=== PATIENT | male | born 1995 | race Caucasian/White ===

== ENCOUNTER 2018-02-28 01:22 | Emergency (ER) | payer BC, OTHER ==
[2018-02-28] MEDS ORDERED: Lidocaine 2% EPI 1:200000 MPF*10-20 ML VIAL ONE (01:59)
--- NOTE | 2018-02-28 02:27 | ED ---
Laceration/Wound HPI - HPI Summary HPI Summary: This patient is a 23 year old M presenting to [facility] accompanied by girlfriend with a chief complaint of laceration to the right elbow that occurred two hours prior to arrival. The patient rates the pain 2/10 in severity. Symptoms aggravated by nothing. Symptoms alleviated by nothing. Patient denies numbness and tingling. Patient states the laceration is from punching glass with his R elbow. - History of Current Complaint Stated Complaint: ARM LAC Time Seen by Provider: 02/28/18 01:51 Hx Obtained From: Patient Mechanism of Injury: Sharp/Blunt Trauma Onset/Duration: Sudden Onset, Lasting Hours, Still Present Aggravating: Nothing Alleviating: Nothing Timing: Constant Onset Severity: Mild Current Severity: Mild Pain Intensity: 2 Pain Scale Used: 0-10 Numeric - Allergy/Home Medications Allergies/Adverse Reactions: Allergies Allergy/AdvReac Type Severity Reaction Status Date / Time No Known Allergies Allergy Verified 05/27/17 13:54 PMH/Surg Hx/FS Hx/Imm Hx Previously Healthy: Yes Endocrine/Hematology History: Denies: Hx Diabetes Cardiovascular History: Denies: Hx Hypertension, Hx Pacemaker/ICD History: Denies: Hx Renal Disease Sensory History: Denies: Hx Hearing Aid Psychiatric History: Denies: Hx Panic Disorder - Surgical History Surgery Procedure, Year, and Place: TRIPLE HERNIA REPAIR 6 YEARS OLD. BROKEN THUMB RESET. REMOVED CAULIFLOWER EAR FROM WRESTLING. LT SHOULFER - LABRAL REPAIR - Immunization History Date of Tetanus Vaccine: within last 5 months Infectious Disease History: No Infectious Disease History: Denies: Traveled Outside the [place] in Last 30 Days - Family History Known Family History: Negative: Hypertension, Diabetes - Social History Occupation: Student Lives: Alone Alcohol Use: Occasionally Hx Substance Use: No Substance Use Type: Reports: None Hx Tobacco Use: No Smoking Status (MU): Never Smoked Tobacco Review of Systems Skin: Other - Positive laceration Neurological: Other - Negative tingling Negative: Numbness All Other Systems Reviewed And Are Negative: Yes Physical Exam - Summary Physical Exam Summary: VITAL SIGNS: Reviewed. GENERAL: Patient is a well-developed and nourished male who is lying comfortable in the stretcher. Patient is not in any acute respiratory distress. HEAD AND FACE: No signs of trauma. No ecchymosis, hematomas or skull depressions. No sinus tenderness. EYES: PERRLA, EOMI x 2, No injected conjunctiva, no nystagmus. EARS: Hearing grossly intact. Ear canals and tympanic membranes are within normal limits. MOUTH: Oropharynx within normal limits. NECK: Supple, trachea is midline, no adenopathy, no JVD, no carotid bruit, no c- spine tenderness, neck with full ROM. CHEST: Symmetric, no tenderness at palpation LUNGS: Clear to auscultation bilaterally. No wheezing or crackles. CVS: Regular rate and rhythm, S1 and S2 present, no murmurs or gallops appreciated. ABDOMEN: Soft, non-tender. No signs of distention. No rebound no guarding, and no masses palpated. Bowel sounds are normal. EXTREMITIES: FROM in all major joints, no cyanosis or clubbing. 1 inch laceration over the medial aspect of the right elbow, puncture wound 1 cm long over the olecranon area, 2.5 cm laceration in the same area, neurovascularly intact, swelling of the olecranon bursa NEURO: Alert and oriented x 3. No acute neurological deficits. Speech is normal and follows commands. SKIN: Dry and warm Triage Information Reviewed: Yes Vital Signs On Initial Exam: Initial Vitals Temp Pulse Resp BP Pulse Ox 97.9 F 70 20 130/63 95 02/28/18 01:27 02/28/18 01:27 02/28/18 01:27 02/28/18 01:27 02/28/18 01:27 Vital Signs Reviewed: Yes Procedures - Laceration/Wound Repair 1 Location: upper extremity Description: Linear Anesthesia: 2.0%, Lido, Epi Length, Depth and Shape: 1 inch Laceration/Wound Explored: clean, no foreign body removed Closure: Single Layer Suture Type: Prolene - 3.0 Number of Sutures: 5 Layer Closure?: Yes Sterile Dressing Applied?: Yes 2 Location: upper extremity Description: Linear Anesthesia: 2.0%, Lido, Epi Length, Depth and Shape: 1 cm Laceration/Wound Explored: clean, no foreign body removed, Other - hematoma evacuated through the puncture wound, total evacuation through puncture wound Closure: Single Layer Suture Type: Prolene Number of Sutures: 2 Layer Closure?: Yes Sterile Dressing Applied?: Yes 3 Location: upper extremity Description: Linear Anesthesia: 2.0%, Lido, Epi Length, Depth and Shape: 2.5 cm Laceration/Wound Explored: clean, no foreign body removed Closure: Single Layer Suture Type: Nylon - 5.0 Number of Sutures: 5 Layer Closure?: Yes Sterile Dressing Applied?: Yes Diagnostics - Vital Signs Vital Signs Temp Pulse Resp BP Pulse Ox 02/28/18 01:27 97.9 F 70 20 130/63 95 - Laboratory Lab Statement: Any lab studies that have been ordered have been reviewed, and results considered in the medical decision making process. Laceration Repair Course/Dx - Course Course Of Treatment: This patient is a 23 year old M presenting to [facility] accompanied by girlfriend with a chief complaint of laceration to the right elbow that occurred two hours prior to arrival. Physical Exam Findings: 1 inch laceration over the medial aspect of the right elbow, puncture wound 1 cm long over the olecranon area, 2.5 cm laceration in the same area, neurovascular intact, swelling of the olecranon bursa. After stitching jerica bandage applied over the olecranon for compression and hemostasis. Sling for elevation. Neurovascular exam intact post procedure. In the ED course the patient was given Keflex. Patient will be discharged with prescription for Keflex and follow up from PCP. The patient is agreeable with this plan. - Clinical Impression Provider Diagnoses: Laceration of right elbow Discharge - Sign-Out/Discharge Documenting (check all that apply): Patient Departure - Discharge home - Discharge Plan Condition: Stable Disposition: HOME Prescriptions: Cephalexin CAP* [Keflex CAP*] 500 mg PO QID #30 cap Patient Education Materials: Cephalexin (By mouth), Care For Your Stitches (ED) , Laceration (ED) Forms: *Physical Education Release Referrals: [facility]YS[facility]IAN REFERRAL [Outside] - 3 Days Additional Instructions: STITCHES OUT IN TWO WEEKS. ELEVATE, SLING, AND TAKE TYLENOL FOR PAIN. RETURN TO THE EMERGENCY DEPARTMENT FOR NEW OR WORSENING SYMPTOMS. - Attestation Statements Document Initiated by Scribe: Yes Documenting Scribe: Kim Rizo Provider For Whom Scribe is Documenting (Include Credential): Dr. Marcela López Scribe Attestation: Kim Shah, scribed for Dr. Marcela López on 02/28/18 at 0326.
[2018-02-28] MEDS ORDERED: Cephalexin CAP* 500 MG PO ONE (02:28)
[2018-02-28 03:00] VITALS: BP 131/78
== END 2018-02-28 02:55 | disposition home or self-care (01) ==
LOC: ED 01:22
DX: S51.011A Laceration without foreign body of right elbow, initial encounter (principal); W22.8XXA Striking against or struck by other objects, initial encounter; Y92.9 Unspecified place or not applicable
CPT/HCPCS: 12002; 99282; A9270-GY